=== PATIENT | male | born 1995 | race Caucasian/White ===

== ENCOUNTER 2023-04-29 08:42 | Emergency (ER) | payer SELFPAY ==
[2023-04-29 08:48] VITALS: BP 157/93; PULSE 67; RESP 15; TEMP 36.6; O2SAT 99
[2023-04-29 08:53] VITALS: BP 157/93; PULSE 67; RESP 15; TEMP 36.6; O2SAT 99
--- NOTE | 2023-04-29 09:01 | ED.GENADUL_ITS ---
Discharge Plan Disposition Patient Disposition: Home Condition: Good Discharge Details Clinical Impression: Dog bite of left hand Primary Care Provider: Cem Padilla ED Provider: Mellissa Iraheta Home Meds and New Rx's Prescriptions: New amoxicillin-pot clavulanate 875-125 mg tablet 1 tab PO BID Qty: 14 0RF Rx Instructions: Take a probiotic with antibiotics No Action escitalopram oxalate 20 mg tablet 20 mg PO DAILY bupropion HCl 100 mg tablet 100 mg PO DAILY Discharge Instructions Instructions: Animal Bite (ED) Additional Instructions: 1. Start Augmentin 1 tablet every 12 hours for 7 days. He may discontinue the antibiotic after 5 days if there are no signs of infection such as redness, pus, pain, fever, red streaking. Take a probiotic while on antibiotics. 2. Alternate acetaminophen every 3 hours with ibuprofen as needed for pain. 3. Wear the splint for 2 days then remove it and gently flex and extend the finger. 4. If there is no signs of infection the sutures will be removed in 7 days. If there are signs of infection return here earlier. 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 The bite was provoked. He tells me that his dog is up-to-date on its immunizations. His last tetanus was greater than 5 years ago. My plan is to obtain plain films to rule out fracture or foreign body. Because bites are prone to infection (approximately 15% of dog bites get infected), we will treat him with Augmentin. I have explained to him that this wound is at high risk for infection laceration over the left middle finger is gaping and I plan to place 1 loose suture after copious irrigation and scrubbing with the surgical scrub brush. The patient was understanding of the risk and benefit and has agreed to laceration repair. We will discharge him on Augmentin with a splint to use for 2 days. I will automobile travel club counselor him on signs and symptoms of infection, use of probiotics and appropriate wound care instructions. We will update his tetanus shot. We will report the bite to animal control. I Differential Diagnosis Differential Diagnosis: Dog bite to the left hand provoked. Medical Records Medical records reviewed: Yes I reviewed the patient's medical records. Imaging Data Radiologic Study: Attestation: I personally reviewed and interpreted this imaging study as follows: Imaging: X-Ray My impression: My impression was no fracture or foreign body. The radiologist interpretation arrived after the patient was discharged and is in agreement with my interpretation. Radiologist's impression: vRad impression: Soft tissue swelling without other acute findings. HPI General Date/Time Provider Initiated Documentation: 04/29/23 09:01 . Limitations to Documentation: no limitations . Information obtained by: patient and family () . HPI Narrative: Time seen was 9:02 AM in bed 4. 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 The patient has 2 sibling dogs that were fighting over [employer] presents and the patient tried to break up the fight and was bitten by the male dog in the left hand. He is complaining of abdominal pain which is 3 out of 10 in severity. He denies any numbness tingling or loss of function. He denies any prior significant injury to the right hand although he has had sutures in it before. His last tetanus shot was 6 years ago. He did washout prior to arrival. He denies any additional injury. He denies any history of immune compromise. He tells me his dog is up-to-date on his immunizations. The bite was provoked over [employer] presents according to the patient. Related Data Home Medications Medication Instructions Recorded Confirmed amoxicillin 875 mg-potassium 1 tab PO BID #14 tabs 04/29/23 clavulanate 125 mg tablet bupropion HCl 100 mg tablet 100 mg PO DAILY 04/29/23 04/29/23 escitalopram oxalate 20 mg tablet 20 mg PO DAILY 04/29/23 04/29/23 Previous Rx's Medication Instructions Recorded amoxicillin 875 mg-potassium 1 tab PO BID #14 tabs 04/29/23 clavulanate 125 mg tablet Allergies Allergy/AdvReac Type Severity Reaction Status Date / Time No Known Allergies Allergy Unverified 04/29/23 08:51 General Stated Complaint: AnimalBite MITZI: 3 Review of Systems Narrative: see hpi PFSH All Active Problems (Updated 04/29/23 @ 10:33 by Mellissa Iraheta MD) Dog bite of left hand (Acute) Fertility testing (Acute) Social History Smoking risk assessment performed?: No Drug use: Rarely Substance use type: marijuana Housing: house Do you feel safe at home: No Do you feel safe in your relationship?: No Exam Narrative Exam Narrative: The patient is a well-developed well-nourished male who is alert and oriented in no acute distress he is mildly hypertensive he is not tachycardic tachypneic or febrile. Room air O2 sat is normal at 99%. GCS is 15 Const General: cooperative, healthy appearing, comfortable, no acute distress, well developed, well groomed and well hydrated Nutritional Appearance: average body habitus and well nourished Orientation: alert, awake and oriented x3 HENMT Head: normal to inspection, normocephalic and atraumatic Ears: hearing grossly normal bilaterally and external ears normal General nose exam: external nose normal, nares normal and no nasal discharge Face and sinus: normal facial exam, sinuses nontender and face symmetric Mouth: oral mucosae normal, lip normal, tongue normal, oropharynx normal, moist mucous membranes and other (Normal phonation. The patient is handling secretions.) Throat: posterior oropharynx normal and uvula midline Eyes General: appearance normal, both eyes and all related structures Eyelids: eyelids normal Conjunctivae: conjunctivae normal Sclera: sclerae normal Cornea: corneas normal Pupils: PERRL EOM: EOM intact bilaterally and No nystagmus Neck Neck: normal visual inspection, full ROM, trachea midline and supple Resp Effort & Inspection: normal respiratory effort, able to speak in complete sentences, no audible wheezes, no nasal flaring, no respiratory distress, no retractions, no stridor, not tachypneic, no tracheal deviation, no use of accessory muscles, No prolonged expiratory phase and other (Normal inspiratory to expiratory ratio.) Auscultation: clear to auscultation bilaterally, no rales, no rhonchi, no w heezes and no rubs Tactile Fremitus: tactile fremitus absent Cardio Jugular venous pressure: no JVD Palpation: normal PMI Rate: regular rate Rhythm: regular rhythm Heart Sounds: S1 normal, S2 normal, no gallops, no murmurs and no rubs GI Palpation: soft, no hepatosplenomegaly, no guarding and nontender Auscultation: normal bowel sounds Skin General skin exam: no rashes or lesions noted, turgor normal, no petechiae, no purpura and other (Skin is normal for ethnicity.) Lesions: no lesions Rashes: no rashes Other: His skin is warm and dry normal for ethnicity. There are several lacerations to the left hand. The largest laceration is 1.5 cm over the dorsum of the left middle finger through to the subcutaneous tissue, at the level of the proximal phalanx.. There is minimal bleeding from the wound. Neuro General: patient alert, patient awake, patient oriented x3, moves all extremities, no meningeal signs, no focal motor deficits and CN's II-XI intact b ilaterally Cranial Nerves: CN's II-XI intact bilaterally, PERRL, accommodation normal, EOM intact bilaterally, no nystagmus, facial strength normal, tongue midline, hearing normal and no nystagmus Cognition: normal cognition Speech: speech normal Gait: normal gait Motor: muscle tone normal throughout and strength 5/5 throughout Sensory Exam: no sensory deficits noted Extrem Other: Please see above. Tendons are intact both flexor and extensor. No sensory deficits. Full range of motion. Neurovascularly intact. Psych Appearance: grossly normal Affect: normal affect Attitude: cooperative Thought Process: normal Thought Content: normal Insight: insight good Judgment: judgment good Other: The patient appears to have capacity make medical decisions. Course Vital Signs Vital signs: Vital Signs Temperature 36.6 C 04/29/23 08:48 Pulse 67 04/29/23 08:48 Respiratory Rate 15 04/29/23 08:48 Blood Pressure 157/93 H 04/29/23 08:48 Pulse Oximetry 99 04/29/23 08:48 Temperature 36.6 C 04/29/23 08:53 Temperature Source Tympanic 04/29/23 08:48 Pulse 67 04/29/23 08:53 Respiratory Rate 15 04/29/23 08:53 Respiratory Effort Normal 04/29/23 08:53 Blood Pressure 157/93 H 04/29/23 08:53 Blood Pressure Position Sitting 04/29/23 08:53 Pulse Oximetry 99 04/29/23 08:53 Oxygen Delivery Method Room Air 04/29/23 08:53 Oxygen Flow Rate 0 04/29/23 08:48 Pain Level 2 04/29/23 08:53 Procedures Other Description: 10:20 AM: After verbal consent all the wounds on his hand were washed with a surgical scrub brush and irrigated. The 1.5 cm laceration over the dorsum of the left middle finger was anesthetized with 1% plain lidocaine, with good resulting anesthesia. It was irrigated with 50 mL of saline and washed with a surgical scrub brush. 1 loose suture, simple interrupted 5-0 Prolene was placed. He tolerated the procedure well. A finger splint and dry sterile dressing will be placed by the nursing staff
--- NOTE | 2023-04-29 09:10 | DI.RAD_ITS ---
Exam(s) XR HAND LT COMPLETE EXAM: XR HAND LT COMPLETE CLINICAL HISTORY: dog bite. TECHNIQUE: 2D digital imaging was performed. COMPARISON: No exams were available for comparison FINDINGS: 3 views There is mild soft tissue swelling. No evidence of fracture or dislocation. No radiopaque foreign b yaritza. Bone density normal. No osseous lesions. IMPRESSION: No acute osseous findings in the hand. DATA REPOSITORY: RADIATION DOSE DELIVERED:
[2023-04-29] MEDS: Amoxicillin 875/Clav. 125 TAB PO (09:48)
--- NOTE | 2023-04-29 10:57 | DI.VRAD_ITS ---
PROCEDURE INFORMATION: Exam: XR Left Hand Exam date and time: 04/29/2023 10:05 AM Age: 28 years old Clinical indication: Injury or trauma; Other: Dog bite; Hand; Left TECHNIQUE: Imaging protocol: Radiologic exam of the left hand. Views: 3 or more views. COMPARISON: No relevant prior studies available. FINDINGS: Bones/joints: No acute fracture or dislocation. No evidence of osteomyelitis. Soft tissues: There is soft tissue swelling noted. No evidence of an abscess. IMPRESSION: Soft tissue swelling without other acute findings. Dictated and Authenticated by: Julissa Wood MD. Ordering:JOSÉ MIGUEL Malloy MD
== END 2023-04-29 11:07 | disposition home or self-care (01) ==
PROVIDERS: Emergency Provider Emergency Medicine Emergency Medical Services; PCP Family Medicine
DX: S61.213A Laceration without foreign body of left middle finger without damage to nail, initial encounter (principal); W54.0XXA Bitten by dog, initial encounter
CPT/HCPCS: 29130; 90471; 99284; 73130